=== PATIENT | female | born 2000 | race Caucasian/White ===

== ENCOUNTER → 2018-11-09 18:58 | Outpatient (CLI) | payer OTHER | END | disposition home or self-care (01) | LOC: D.LABREF 18:58 | PROVIDERS: ATTEND Pediatrics | DX: R30.0 Dysuria (principal) ==

== ENCOUNTER → 2019-12-01 06:04 | Outpatient (CLI) | payer SELFPAY | END | disposition home or self-care (01) | LOC: D.LABREF 06:04 | PROVIDERS: ATTEND Pediatrics | DX: Z72.51 High risk heterosexual behavior (principal) ==